=== PATIENT | male | born 1985 | race Caucasian/White ===

== ENCOUNTER 2020-06-02 08:52 | Emergency (ER) | payer BC, OTHER ==
[2020-06-02] MEDS ORDERED: Penicillin G Benzathine/Procaine 600-600 1.2 Millunits/2 ML Syringe IM ONE (09:21)
--- NOTE | 2020-06-02 09:25 | EDM.PDOC ---
<Antoinette Foster - Last Filed: 06/02/20 09:25> ED HPI GENERAL MEDICAL PROBLEM - General Stated Complaint: SORE THROAT CAN'T SWALLOW Time Seen by Provider: 06/02/20 09:15 Source of Information: Reports: Patient, RN, RN Notes Reviewed History Limitations: Reports: No Limitations - History of Present Illness INITIAL COMMENTS - FREE TEXT/NARRATIVE: 35 year old male presents to ER with complaint of sore throat and difficulty swallowing for 3 days. has been using salt water gargles and OTC medications without relief. reports fever, chills. denies n/v/d. reports pain 5/10. denies COVD exposure, denies anyone else in home being ill. Onset: Gradual Throat Pain Score (Numeric/FACES): 5 - Related Data Allergies Allergy/AdvReac Type Severity Reaction Status Date / Time No Known Allergies Allergy Verified 06/02/20 09:02 Home Meds: Home Meds . [No Known Home Meds] 10/03/13 [History] Past Medical History - Past Health History Medical/Surgical History: Denies Medical/Surgical History HEENT History: Reports: None Cardiovascular History: Reports: None Respiratory History: Reports: None Gastrointestinal History: Reports: None Genitourinary History: Reports: None Musculoskeletal History: Reports: None Neurological History: Reports: None Psychiatric History: Reports: None Endocrine/Metabolic History: Reports: None Hematologic History: Reports: None Immunologic History: Reports: None Oncologic (Cancer) History: Reports: None Dermatologic History: Reports: None - Infectious Disease History Infectious Disease History: Reports: None - Past Surgical History Head Surgeries/Procedures: Reports: None Social & Family History - Family History Family Medical History: Unobtainable - Tobacco Use Tobacco Use Status *Q: Current Every Day Tobacco User Years of Tobacco use: 12 Packs/Tins Daily: 0.5 - Caffeine Use Caffeine Use: Reports: Coffee, Energy Drinks - Recreational Drug Use Recreational Drug Use: No ED ROS ENT - Review of Systems Review Of Systems: Comprehensive ROS is negative, except as noted in HPI. ED EXAM, ENT - Physical Exam Exam: See Below Exam Limited By: No Limitations General Appearance: Alert, WD/WN, No Apparent Distress Eye Exam: Bilateral Eye: EOMI, Normal Inspection Ears: Normal External Exam, Hearing Grossly Normal Nose: Normal Inspection, No Blood Mouth/Throat: Normal Gums, Normal Lips, Pharyngeal Erythema, Throat Pain, Tonsillar Erythema, Tonsillar Swelling, Other (3+ tonsilar hypertrophy) Head: Atraumatic, Normocephalic Neck: Lymphadenopathy (L), Lymphadenopathy (R). No: Non-Tender Respiratory/Chest: No Respiratory Distress, Lungs Clear, Normal Breath Sounds Cardiovascular: Normal Peripheral Pulses, Regular Rate, Rhythm, No Edema GI/Abdominal: Normal Bowel Sounds, Soft, Non-Tender (Male) Exam: Deferred Rectal (Males) Exam: Deferred Back: Normal Inspection, Full Range of Motion Extremities: Normal Inspection, Normal Range of Motion Neurological: Alert, Oriented, Normal Cognition Psychiatric: Normal Affect, Normal Mood Skin: Warm, Dry, Intact Lymphatic: Adenopathy Departure - Departure Time of Disposition: 09:26 Disposition: Home, Self-Care 01 Condition: Good Clinical Impression: Strep pharyngitis - Discharge Information *PRESCRIPTION DRUG MONITORING PROGRAM REVIEWED*: No *COPY OF PRESCRIPTION DRUG MONITORING REPORT IN PATIENT PATY: No Instructions: Strep Throat, Adult Forms: ED Department Discharge Additional Instructions: RX: Zpak, starting tomorrow, Sunday 06/03, take two tablets day one, take one tablet for remaining four days. May swish and swallow with magic mouthwash every 4-6 hours as directed. May use tylenol and/or ibuprofen for fever/pain as directed. Continue with salt water gargles as tolerated. Keep hydrated. Practice strict hygiene to prevent spread to family members. Do not return to work at least 24 hours after start of antibiotics. Return to ER or primary care provider if symptoms worsen, unable to swallow or difficulty breathing. Sepsis Event Note (ED) - Evaluation Sepsis Screening Result: No Definite Risk <Gauri Abreu - Last Filed: 06/02/20 09:44> Course - Vital Signs Last Recorded V/S: Last Vital Signs Temp 98.9 F 06/02/20 09:04 Pulse 110 H 06/02/20 09:04 Resp 16 06/02/20 09:04 BP 137/58 L 06/02/20 09:04 Pulse Ox 98 06/02/20 09:04 - Orders/Labs/Meds Meds: Medications Discontinued Medications Generic Name Dose Route Start Last Admin Trade Name Freq PRN Reason Stop Dose Admin Penicillin G Procaine/Benzathine 1.2 millunits 06/02/20 09:21 06/02/20 09:26 Bicillin C-R 600/600 IM 06/02/20 09:22 1.2 millunits ONETIME ONE Administration - Re-Assessments/Exams Free Text/Narrative Re-Assessment/Exam: 06/02/20 09:44 I personally performed or re-performed the physical examination and medical decision making. I have verified all student documentation or findings, including history, physical exam and/or medical decision making. Sepsis Event Note (ED) - Focused Exam Vital Signs: Vital Signs Temp Pulse Resp BP Pulse Ox 06/02/20 09:04 98.9 F 110 H 16 137/58 L 98
== END 2020-06-02 09:39 | disposition home or self-care (01) ==
LOC: DL.ED 08:52
DX: J02.0 Streptococcal pharyngitis (principal); F17.210 Nicotine dependence, cigarettes, uncomplicated
CPT/HCPCS: 87430; 96372; 99284; J0558